=== PATIENT | male | born 1950 | race Caucasian/White ===

== ENCOUNTER 2019-01-29 05:41 | Observation (INO) | payer OTHER ==
[~2019-01-29] VITALS: Ht 177.8 cm; Wt 92.0 kg
[2019-01-29] MEDS ORDERED: PRINIVIL10 MG PO (06:00)
[2019-01-29] MEDS ORDERED: NITR.4SL SL (06:00)
[2019-01-29] MEDS ORDERED: Aspir 8181 MG PO (06:00)
[2019-01-29] MEDS ORDERED: FINA5 PO (06:00)
[2019-01-29] MEDS ORDERED: Flomax0.4 MG PO (06:01)
[2019-01-29] MEDS ORDERED: Simvastatin40 MG PO (06:01)
[2019-01-29] MEDS ORDERED: CLOP75 PO (06:02)
[2019-01-29 06:24] LABS: BASOPHILS ABSOLUTE AUTO 0.07 K/mm3 (0.00-0.23); BASOPHILS PERCENT AUTO 1 % (0-2); EOSINOPHILS ABSOLUTE AUTO 0.47 K/mm3 (0.00-0.68); EOSINOPHILS PERCENT AUTO 6 % (0-6); Hematocrit 50.2 % (37.0-53.0); Hemoglobin 16.7 g/dL (13.5-17.5); IMMATURE GRAN ABSOLUTE AUTO 0.05 K/mm3 (0.00-0.10); IMMATURE GRAN PERCENT AUTO 1 % (0-1); LYMPHOCYTES ABSOLUTE AUTO 1.53 K/mm3 (0.84-5.20); LYMPHOCYTES PERCENT AUTO 18 % (21-46); MONOCYTES ABSOLUTE AUTO 0.77 K/mm3 (0.16-1.47); MONOCYTES PERCENT AUTO 9 % (4-13); Mean Corpuscular HGB 31.6 pg (26.0-34.0); Mean Corpuscular HGB Conc 33.3 g/dL (31.5-36.5); Mean Corpuscular Volume 95 fL (80-100); NEUTROPHILS ABSOLUTE AUTO 5.44 K/mm3 (1.96-9.15); NEUTROPHILS PERCENT AUTO 65 % (41-73); Platelet Count 168 K/mm3 (150-400); RDW Coefficient Variation 13.3 % (11.7-14.2); RDW Standard Deviation 46.9 fL (35.1-46.3); Red Blood Cell Count 5.28 M/mm3 (4.30-5.90); White Blood Cell Count 8.33 K/mm3 (4.00-11.30)
[2019-01-29 06:46] LABS: Alanine Aminotransfer (ALT/SGP 38 U/L (12-78); Albumin, Blood 3.7 g/dL (3.4-5.0); Albumin/Globulin Ratio 1.1 (0.8-1.8); Alk Phos 75 U/L (50-136); Anion Gap 6 mmol/L (6-16); Aspartate Aminotrans (AST/SGOT 27 U/L (12-37); Bilirubin, Total 0.5 mg/dL (0.1-1.0); Blood Urea Nitrogen 19 mg/dL (8-24); Bun/Creatinine Ratio 30.3 (12.0-20.0); CO2, Blood 24 mmol/L (21-32); Calcium, Blood 8.6 mg/dL (8.5-10.1); Chloride, Blood 108 mmol/L (98-108); Creatinine, Blood 0.63 mg/dL (0.60-1.20); Globulin, Blood 3.3 g/dL (2.2-4.0); Glomerular Filtration Rate >60 (60-); Glucose, Blood 158 mg/dL (70-99); Potassium, Blood 4.2 mmol/L (3.5-5.5); Sodium, Blood 138 mmol/L (136-145); Troponin I <0.015 ng/mL (0.000-0.040)
[2019-01-29] MEDS ORDERED: Preservision A1 EACH PO (12:39)
--- NOTE | 2019-01-29 17:41 | NUR ---
SHIFT SUMMARY 1350 RECEIVED PT TO RM 338 VIA W/C FROM ER. PT INDEPENDENT AND ABLE TO TX SELF TO BED. RECEIVED REPORT THAT PT TO ER WITH C/O CP THIS AM. TROPONIN NEG, BUT NEEDED TO BE ADMITTED UNTIL ADDITIONAL TROPONINS SHOWED NEG. PER REPORT, PT HAD ANGIO SCHEDULED FOR NEXT MONTH, AT IN. PT NOT WANTING TO HAVE ANY TESTS OR PROCEDURES ORDERED, REGARDLESS, HE WANTS TO GO THRU THE IN. PT WANTING TO SCHEDULE HIS OWN NEEDED CARE PER IN. PT D/C'D PER REQUEST, AFTER LABS COMPLETE. IV SITE D/C'D WNL'S. PT SITTING IN CHAIR AT , WAITING FOR TO RETURN AND THEN REQUESTED TO WALK OUT TO CAR. NO C/O. D/C INSTRUCTIONS GIVEN BY NOEMY RN. VERBALIZED UNDERSTANDING.
== END 2019-01-29 17:10 | disposition home or self-care (01) ==
LOC: ER 05:41 → ERHOLD 05:42 → MEDS 05:42
PROVIDERS: Emergency Medicine; ADMIT Internal Medicine
DX: I25.119 Atherosclerotic heart disease of native coronary artery with unspecified angina pectoris (principal); I10 Essential (primary) hypertension; R73.9 Hyperglycemia, unspecified; I25.2 Old myocardial infarction; E78.5 Hyperlipidemia, unspecified; Z95.5 Presence of coronary angioplasty implant and graft; Z79.899 Other long term (current) drug therapy; Z79.82 Long term (current) use of aspirin; Z79.02 Long term (current) use of antithrombotics/antiplatelets; Z87.891 Personal history of nicotine dependence
CPT/HCPCS: 36415; 71046; 80053; 83690; 84484; 85025; 93005; 93010; 99285-25; G0378

== ENCOUNTER → 2019-05-23 | Outpatient (CLI) | payer SELFPAY ==
[~2019-05-23] MED LIST: Aspir 8181 MG PO; CLOP75 PO; FINA5 PO; Flomax0.4 MG PO; NITR.4SL SL; PRINIVIL10 MG PO; Preservision A1 EACH PO; Simvastatin40 MG PO
== END ==
LOC: LAB SHORT 15:45 → LAB 15:45
DX: L08.9 Local infection of the skin and subcutaneous tissue, unspecified (principal)
CPT/HCPCS: 87070; 87077; 87147; 87186; 87205

== ENCOUNTER 2019-06-28 08:23 | Day surgery (SDC) | payer OTHER ==
[~2019-06-28] VITALS: Ht 177.8 cm; Wt 93.2 kg
[~2019-06-28 08:23] MED LIST changes: +BENADRYL25 MG PO; +CLOBETASOL PROP59 ML; +Crestor20 MG PO
[2019-06-28] MEDS ORDERED: BENADRYL25 MG PO (09:02)
[2019-06-28] MEDS ORDERED: METO50 PO (09:02)
[2019-06-28] MEDS ORDERED: ALLEGRA ALLERG180 MG PO (09:03)
[2019-06-28] MEDS ORDERED: FOLI1 PO (09:20)
[2019-06-28] MEDS ORDERED: Methotrexate2.5 MG PO (09:20)
[2019-06-28] MEDS ORDERED: Aspir 8181 MG PO (11:40)
[2019-06-28] MEDS ORDERED: Crestor40 MG PO (11:41)
--- NOTE | 2019-06-28 14:14 | NUR ---
DISCHARGE PT DRESSED SELF WITH NO COMPLICATIONS. TR BAND REMOVED AND CLOTH DRESSING APPLIED. NO BLEEDING, OOZING OR HEMATOMA NOTED. PT DENIES ANY PAIN. BOTH PT AND STATE THEIR UNDERSTANDING OF DISCHARGE AND SITE CARE INSTRUCTIONS AND BOTH DENY ANY QUESTIONS OR CONCERNS. PTS IV DCD WITH CATH INTACT. VSS. PT DENIED A WHEELCHAIR RIDE TO THE FRONT DOOR AND AMBULATED OUT OF DEPARTMENT, NO SIGNS OF UNSTEADY GAIT.
== END 2019-06-28 14:24 | disposition home or self-care (01) ==
LOC: MHTC 08:23
PROC: B201YZZ Plain Radiography of Multiple Coronary Arteries using Other Contrast (ICD-10-PCS; principal; 2019-06-28)
PROC: 4A023N7 Measurement of Cardiac Sampling and Pressure, Left Heart, Percutaneous Approach (ICD-10-PCS; principal; 2019-06-28)
DX: I25.119 Atherosclerotic heart disease of native coronary artery with unspecified angina pectoris (principal); E78.5 Hyperlipidemia, unspecified; E11.9 Type 2 diabetes mellitus without complications; Z88.8 Allergy status to other drugs, medicaments and biological substances; Z79.82 Long term (current) use of aspirin; Z79.899 Other long term (current) drug therapy; Z79.02 Long term (current) use of antithrombotics/antiplatelets; I25.2 Old myocardial infarction; L40.9 Psoriasis, unspecified; D35.1 Benign neoplasm of parathyroid gland; E21.3 Hyperparathyroidism, unspecified; N40.0 Benign prostatic hyperplasia without lower urinary tract symptoms; H35.30 Unspecified macular degeneration; I11.0 Hypertensive heart disease with heart failure; I50.20 Unspecified systolic (congestive) heart failure
CPT/HCPCS: 76937; 85347; 92978; 93458; 93571; 99152; 99153; C1753; C1769; C1887; C1894; J1644; J2250; J3010; J7030; Q9967

== ENCOUNTER 2023-11-29 07:00 | Day surgery (SDC) | payer OTHER ==
[~2023-11-29] VITALS: Ht 177.8 cm; Wt 88.9 kg
[2023-11-29] VITALS (8 sets, daily range): BP systolic 136–145; BP diastolic 72–83
[~2023-11-29 07:00] MED LIST changes: +ALLEGRA ALLERG180 MG PO; +Crestor40 MG PO; +FOLI1 PO; +METO100ER PO; +Methotrexate2.5 MG PO
[2023-11-29] MEDS ORDERED: CLOBETASOL EMOL15 G1 (07:21)
[2023-11-29] MEDS ORDERED: NS 1,000 ML IV ONE ×2 (07:29→08:14)
[2023-11-29] MEDS ORDERED: NS 250 ML IV ONE (07:29)
[2023-11-29] MEDS ORDERED: Heparin Sodium 1000 Units/ML 10ML MDV ONE ×2 (07:29→08:14)
[2023-11-29] MEDS ORDERED: Verapamil HCL 2.5 MG/ML 2ML Injection ONE (07:29)
[2023-11-29] MEDS ORDERED: LORA10ER PO (07:34)
[2023-11-29] MEDS ORDERED: Prinivil10 MG PO (07:34)
[2023-11-29] MEDS ORDERED: METF500 PO (07:35)
[2023-11-29] MEDS ORDERED: FentaNYL Citrate 50 MCG/ML 2 ML Injection ONE (08:14)
[2023-11-29] MEDS ORDERED: Midazolam HCl 1MG / ML 2ML Vial ONE (08:14)
--- NOTE | 2023-11-29 09:13 | NUR ---
Pt back to recovery room. Pt wake and alert sitting in recliner. Pt spouse to bedside. Pt given breakfast and coffee. TR band to R wrist. no bleeding or hematoma noted. Pt verbalize r wrist restrictions.
--- NOTE | 2023-11-29 10:26 | NUR ---
TR band fully deflated. no bleeding or hematoma noted.
--- NOTE | 2023-11-29 11:00 | NUR ---
PT AND SPOUSE VERBALIZE D/C INSTRUCTIONS. TR BAND REMOVED AND DOT CLOTH PLACED. IV D/C CATHETER INTACT. PT DRESSED AND AMBULATES TO BR WITHOUT DIFFICUTLY. PT WHEELED OUT OF DEPT.
== END 2023-11-29 11:00 | disposition home or self-care (01) ==
LOC: MHTC 07:00
DX: I25.118 Atherosclerotic heart disease of native coronary artery with other forms of angina pectoris (principal); E11.9 Type 2 diabetes mellitus without complications; I10 Essential (primary) hypertension; I25.2 Old myocardial infarction; Z79.84 Long term (current) use of oral hypoglycemic drugs; Z88.8 Allergy status to other drugs, medicaments and biological substances; Z79.82 Long term (current) use of aspirin; Z79.899 Other long term (current) drug therapy
CPT/HCPCS: J1644; J2250; J3010; J7030; J7050

== ENCOUNTER 2025-01-24 11:27 | Day surgery (SDC) | payer OTHER ==
[~2025-01-24] VITALS: Ht 177.8 cm; Wt 85.0 kg
[~2025-01-24 11:27] MED LIST changes: +Balanced Salt Epinephrine Irrigation Solution 500 mL IR SCH; +CLOBETASOL EMOL15 G1; +LORA10ER PO; +METF500 PO; +Moxifloxacin HCL 0.5 MG/0.1 ML 0.4MLSYR RIGHTEYE SCH; +Ondansetron 4 MG SoluTab MM PRN; +PHENYLEPHRINE\\TROPICAMIDE\\TETRACAINE OPHTHALMIC DILATING SOLN RIGHTEYE PRN; +Povidone-Iodine 450 DROP/30 ML Solution ONE; +Povidone-Iodine 450 DROP/30 ML Solution RIGHTEYE SCH; +Prinivil10 MG PO; +Tetracaine HCl/Pf 0.5% Opth Soln 4 ml ONE; +Triamcinolone Inj Susp 40 MG / ML 1ML Vial INJ SCH; +Triamcinolone Inj Susp 40 MG / ML 1ML Vial ONE
[2025-01-24] MEDS ORDERED: B-121000 MC3 (12:03)
[2025-01-24] MEDS ORDERED: ERYT.5TO (12:03)
[2025-01-24] MEDS ORDERED: LIDO700A20 TOP (12:04)
[2025-01-24] MEDS ORDERED: MAGNESIUM OXID500 MG (12:05)
[2025-01-24] MEDS ORDERED: CENTRUM SILVER1 EAC2 (12:05)
[2025-01-24] MEDS ORDERED: METF500C PO (12:06)
[2025-01-24] MEDS ORDERED: [UNRECOGNIZED DRUG - OTHER] (12:07)
--- NOTE | 2025-01-24 12:39 | NUR ---
01/24/25 1239 Kasie Gonzalez 1232: PER DR LORD PT WILL DO PROCEDURE WITHOUT SEDATION
--- NOTE | 2025-01-24 12:47 | NUR ---
01/24/25 1247 Maria Isabel Mansfield 1240 BP:149/79 HR:64 O2:99% RESP:16
[2025-01-24 13:02] VITALS: BP 143/69
== END 2025-01-24 13:28 | disposition home or self-care (01) ==
LOC: ORSCSDS 11:27
PROVIDERS: Ophthalmology
PROC: 08RJ3JZ Replacement of Right Lens with Synthetic Substitute, Percutaneous Approach (ICD-10-PCS; principal; 2025-01-24 13:00)
DX: E11.36 Type 2 diabetes mellitus with diabetic cataract (principal); H25.811 Combined forms of age-related cataract, right eye; H21.81 Floppy iris syndrome; I25.10 Atherosclerotic heart disease of native coronary artery without angina pectoris; I10 Essential (primary) hypertension; E78.5 Hyperlipidemia, unspecified; E21.3 Hyperparathyroidism, unspecified; Z79.82 Long term (current) use of aspirin; Z79.84 Long term (current) use of oral hypoglycemic drugs; Z79.02 Long term (current) use of antithrombotics/antiplatelets; Z79.899 Other long term (current) drug therapy
CPT/HCPCS: 82947; J3301; V2632

== ENCOUNTER 2025-01-31 11:48 | Day surgery (SDC) | payer OTHER ==
[~2025-01-31] VITALS: Ht 177.8 cm; Wt 86.1 kg
[~2025-01-31 11:48] MED LIST changes: +B-121000 MC3; +CENTRUM SILVER1 EAC2; +ERYT.5TO; +LIDO700A20 TOP; +MAGNESIUM OXID500 MG; +METF500C PO; +Moxifloxacin HCL 0.5 MG/0.1 ML 0.4MLSYR LEFTEYE SCH; -Moxifloxacin HCL 0.5 MG/0.1 ML 0.4MLSYR RIGHTEYE SCH; +NS 500 ML IV ONE; -Ondansetron 4 MG SoluTab MM PRN; +PHENYLEPHRINE\\TROPICAMIDE\\TETRACAINE OPHTHALMIC DILATING SOLN LEFTEYE PRN; -PHENYLEPHRINE\\TROPICAMIDE\\TETRACAINE OPHTHALMIC DILATING SOLN RIGHTEYE PRN; +Povidone-Iodine 450 DROP/30 ML Solution LEFTEYE SCH; -Povidone-Iodine 450 DROP/30 ML Solution RIGHTEYE SCH; +[UNRECOGNIZED DRUG - OTHER]
[2025-01-31] MEDS ORDERED: FentaNYL Citrate 50 MCG/ML 2 ML Injection ONE (12:33)
[2025-01-31] MEDS ORDERED: Midazolam HCl 1MG / ML 2ML Vial ONE (12:34)
[2025-01-31] MEDS ORDERED: NS 500 ML IV ONE (12:39)
[2025-01-31] MEDS ORDERED: Tetracaine HCl 0.5% Opth Soln 15 ml LEFTEYE ONE (12:57)
[2025-01-31 13:29] VITALS: BP 138/71
== END 2025-01-31 13:33 | disposition home or self-care (01) ==
LOC: ORSCSDS 11:48
PROVIDERS: Ophthalmology
PROC: 08RK3JZ Replacement of Left Lens with Synthetic Substitute, Percutaneous Approach (ICD-10-PCS; principal; 2025-01-31 13:30)
DX: E11.36 Type 2 diabetes mellitus with diabetic cataract (principal); H25.812 Combined forms of age-related cataract, left eye; H21.81 Floppy iris syndrome; H35.3132 Nonexudative age-related macular degeneration, bilateral, intermediate dry stage; Z96.1 Presence of intraocular lens; I10 Essential (primary) hypertension; E78.5 Hyperlipidemia, unspecified; E21.3 Hyperparathyroidism, unspecified; I25.10 Atherosclerotic heart disease of native coronary artery without angina pectoris; Z79.82 Long term (current) use of aspirin; Z79.84 Long term (current) use of oral hypoglycemic drugs; Z79.02 Long term (current) use of antithrombotics/antiplatelets; Z79.899 Other long term (current) drug therapy
CPT/HCPCS: 82947; J2250; J3010; J3301; J7040; V2632